=== PATIENT | female | born 2000 | race Caucasian/White ===

== ENCOUNTER 2024-09-12 10:45 | Emergency (ER) | payer OTHER ==
[~2024-09-12] VITALS: Ht 172.7 cm; Wt 87.1 kg
[2024-09-12 12:07] VITALS: BP 108/57; TEMP 97.3; O2SAT 99
== END 2024-09-12 12:18 | disposition home or self-care (01) ==
LOC: M ED 10:45
DX: S61.401A Unspecified open wound of right hand, initial encounter (principal); W26.8XXA Contact with other sharp object(s), not elsewhere classified, initial encounter; Y92.9 Unspecified place or not applicable; Y93.89 Activity, other specified; Y99.9 Unspecified external cause status

== ENCOUNTER → 2025-04-11 | Outpatient (CLI) | payer OTHER | LOC: M EKG 11:44 | PROVIDERS: ATTEND Physician Assistant | DX: R42 Dizziness and giddiness (principal) ==

== ENCOUNTER → 2025-04-30 | Outpatient (CLI) | payer OTHER | LOC: M CARPUL 08:09 | PROVIDERS: ATTEND Physician Assistant | DX: R42 Dizziness and giddiness (principal) ==